=== PATIENT | male | born 2000 | race Caucasian/White ===

== ENCOUNTER 2022-04-27 16:21 | Emergency (ER) | payer OTHER ==
[2022-04-27] MEDS ORDERED: fentaNYL 50 MCG/ML SDV IVPUSH ONE (16:53)
[2022-04-27] MEDS ORDERED: Propofol 200 MG/20 ML SDV ONE (17:44)
== END 2022-04-27 18:30 | disposition home or self-care (01) ==
LOC: JP.ED 16:21
DX: S52.501A Unspecified fracture of the lower end of right radius, initial encounter for closed fracture (principal); Z79.899 Other long term (current) drug therapy; W18.39XA Other fall on same level, initial encounter
CPT/HCPCS: 25505; 25605; 73100-26-RT; 73100-RT; 73110-26-RT; 73110-RT; 96374; 99282; 99283-25; J2704; J3010